=== PATIENT | female | born 1975 | race Hispanic/Latino ===

== ENCOUNTER 2019-04-16 22:15 | Emergency (ER) | payer OTHER, MEDICAID ==
[2019-04-16] MEDS ORDERED: Ibuprofen 800 MG TAB ONE (22:51)
== END 2019-04-16 23:05 | disposition home or self-care (01) ==
LOC: MADERS 22:15
DX: S00.12XA Contusion of left eyelid and periocular area, initial encounter (principal); I10 Essential (primary) hypertension; Z79.899 Other long term (current) drug therapy; W20.8XXA Other cause of strike by thrown, projected or falling object, initial encounter
CPT/HCPCS: 99283

== ENCOUNTER 2019-11-29 20:10 | Emergency (ER) | payer SELFPAY ==
[2019-11-29] MEDS ORDERED: HYDROcodone/Acetaminophen 5/325 mg Tablet ONE (20:53)
[2019-11-29] MEDS ORDERED: Ibuprofen 800 MG TAB ONE (20:54)
[2019-11-29] MEDS ORDERED: Acetaminophen 325 MG TAB ONE (20:54)
== END 2019-11-29 21:10 | disposition home or self-care (01) ==
LOC: MADERS 20:10
DX: S70.12XA Contusion of left thigh, initial encounter (principal); W20.8XXA Other cause of strike by thrown, projected or falling object, initial encounter; Y99.0 Civilian activity done for income or pay
CPT/HCPCS: 99283